=== PATIENT | male | born 1980 | race Caucasian/White ===

== ENCOUNTER 2019-02-11 20:54 | Inpatient (IN) | payer SELFPAY ==
[~2019-02-11] VITALS: Ht 195.6 cm; Wt 112.5 kg
[2019-02-11] MEDS ORDERED: CYMBALTA60 MG PO (20:59)
[2019-02-11] MEDS ORDERED: CLEOCIN HCL300 MG (20:59)
[2019-02-11 21:24] LABS: BASOPHILS 0.4 % (0-2); EOSINOPHILS 3.2 % (0-7); HEMATOCRIT 43.3 % (42.0-54.0); HEMOGLOBIN 15.4 g/dL (13.5-17.5); IMMATURE GRANULOCYTES 0.2 % (0-5); LYMPHOCYTES 25.3 % (15-50); MCH 31.7 pg (26.0-34.0); MCHC 35.6 g/dL (31.0-37.0); MCV 89.1 fL (80.0-100.0); MONOCYTES 9.5 % (2-11); NEUTROPHILS 61.4 % (40-80); PLATELET COUNT 207 10x3/uL (130-400); RBC 4.86 10x6/uL (4.20-6.10); RDW 12.3 % (11.5-14.5); WBC 10.8 10x3/uL (4.8-10.8)
[2019-02-11 21:33] LABS: APTT 30.4 SECONDS (22.8-39.4); INR 0.95 (0.85-1.17); PROTIME 12.2 SECONDS (11.6-15.0)
[2019-02-11 21:49] LABS: ALBUMIN 3.6 g/dL (3.4-5.0); ALKALINE PHOSPHATASE 109 U/L (46-116); ALT (SGPT) 24 U/L (10-68); BILIRUBIN - TOTAL 0.25 mg/dL (0.2-1.3); CALC OSMOLALITY 280 mosm/kg (275-300); CALCIUM 9.1 mg/dL (8.5-10.1); CARBON DIOXIDE 26.4 mmol/L (21.0-32.0); CHLORIDE - SERUM 106 mmol/L (98-107); CREATININE - SERUM 0.7 mg/dL (0.6-1.3); GLUCOSE 108 mg/dL (74-106); POTASSIUM - SERUM 4.1 mmol/L (3.5-5.1); PROTEIN - SERUM 7.2 g/dL (6.4-8.2); SODIUM 140 mmol/L (136-145); UREA NITROGEN 16 mg/dL (7-18); eGFR NON AFRICAN AMERICAN > 90 mL/min (90-120)
[2019-02-11 21:52] LABS: CREATINE KINASE 119 UL (21-232)
[2019-02-11 21:53] LABS: TROPONIN-I < 0.017 ng/mL (0.000-0.060)
[2019-02-11 21:56] LABS: APPEARANCE CLEAR (CLEAR); BILIRUBIN NEGATIVE (NEGATIVE); COLOR YELLOW (YELLOW); GLUCOSE NEGATIVE (NEGATIVE); KETONE NEGATIVE (NEGATIVE); NITRITE NEGATIVE (NEGATIVE); PROTEIN NEGATIVE (NEGATIVE); SPECIFIC GRAVITY 1.015 (1.005-1.020); UROBILINOGEN NORMAL (NORMAL)
--- NOTE | 2019-02-11 22:35 | NUR ---
PT RESTING ON BED. NO S/S OF ACUTE DISTRESS NOTED. PLAN OF CARE DISCUSSED WITH PT. WOUND CULTURE OBTAINED FROM PT FOOT. SWAB SENT TO LAB.
--- NOTE | 2019-02-11 23:25 | NUR ---
PT WHEELED TO FLOOR BY ER STAFF. VSS, NO SIGNS OF DISTRESS, DENIES ANY PAIN AT THIS TIME. ASSESSMENT COMPLETE. C/O SPIDER BITE TO TOP OF LEFT FOOT. AREA IS RED AND GENERALIZED SWELLING NOTED. CL IN REACH, BED IN LOWEST POSITION. CONT WITH POC.
[2019-02-11 23:30] VITALS: BP 118/74; BMI 29.4
[2019-02-12 03:50] VITALS: BP 126/87
[2019-02-12 06:23] LABS: BASOPHILS 0.2 % (0-2); EOSINOPHILS 3.9 % (0-7); HEMATOCRIT 41.7 % (42.0-54.0); HEMOGLOBIN 14.7 g/dL (13.5-17.5); IMMATURE GRANULOCYTES 0.2 % (0-5); MCH 31.6 pg (26.0-34.0); MCHC 35.3 g/dL (31.0-37.0); MCV 89.7 fL (80.0-100.0); MONOCYTES 9.1 % (2-11); NEUTROPHILS 61.6 % (40-80); PLATELET COUNT 185 10x3/uL (130-400); RBC 4.65 10x6/uL (4.20-6.10); RDW 12.5 % (11.5-14.5); WBC 8.7 10x3/uL (4.8-10.8)
[2019-02-12 06:30] LABS: CALC OSMOLALITY 285 mosm/kg (275-300); CALCIUM 8.5 mg/dL (8.5-10.1); CARBON DIOXIDE 29.7 mmol/L (21.0-32.0); CHLORIDE - SERUM 109 mmol/L (98-107); CREATININE - SERUM 0.7 mg/dL (0.6-1.3); GLUCOSE 97 mg/dL (74-106); PHOSPHOROUS 3.8 mg/dL (2.5-4.9); POTASSIUM - SERUM 4.3 mmol/L (3.5-5.1); SODIUM 143 mmol/L (136-145); UREA NITROGEN 15 mg/dL (7-18); eGFR NON AFRICAN AMERICAN > 90 mL/min (90-120)
--- NOTE | 2019-02-12 07:16 | NUR ---
PT RESTING COMFORTABLY IN BED WITH EYES CLOSED. BREATHING EVEN AND UNLABORED, NO S/S OF DISTRESS. WILL CTM.
[2019-02-12 07:39] VITALS: BP 117/83
--- NOTE | 2019-02-12 10:20 | NUR ---
HUNG IV ANTIBIOTIC, NO COMPLAINT OF IV PAIN. REQUESTED PO PAIN MEDICATION FOR PAIN IN FOOT. DENIES OTHER NEEDS. RESTING COMFORTABLY. WILL CTM.
--- NOTE | 2019-02-12 11:11 | MORECARE ---
CASE MANAGEMENT DISCHARGE SUMMARY PATIENT: JEFF MEDRANO UNIT: [id number] ADM DATE: 02/11/19 AGE: 38 : 80 SEX: M ROOM/BED: D.1209 AUTHOR: JAYY,DOC PHYSICIAN: REFERRING PHYSICIAN: SHERIF BECKFORD MD DATE OF SERVICE: 02/12/19 Discharge Plan Patient Name: JEFF MEDRANO Facility: [facility]:[place] : 1980 Planned Disposition: Home Anticipated Discharge Date: Discharge Date: Expected LOS: Initial Reviewer: [email or web address] Initial Review Date: 02/12/2019 Generated: 02/12/19 12:10 pm Comments DCP- Discharge Planning Updated by [email or web address]: Sushila Caba on 02/12/19 10:[address] Patient Name: JEFF MEDRANO Admission Status: ER Accout number: [id number] Admission Date: 02-11-2019 : 1980 Admission Diagnosis: Attending: ANALY, Current LOS: 1 Anticipated DC Date: Planned Disposition: Home Primary Insurance: UNINSURED DISCOUNT PLAN Discharge Planning Comments: CM met with patient at bedside after explaining CM role and obtaining verbal consent. Patient lives at home with his family and plans to return there upon discharge. Patient feels this would be a safe discharge. CM discussed availability / needs of home health and medical equipment. Patient denies any discharge needs at this time. Patient states he will have his family drive him home upon discharge. CM will continue to follow and assist as needed with discharge planning / needs. Shoe Repairer: Sushila Caba DCPIA - Discharge Planning Initial Assessment Updated by [email or web address]: Sushila Caba on 02/12/19 11:06 am * Is the patient Alert and Oriented? Yes * How many steps to enter\exit or inside your home? * PCP [facility] * Pharmacy [facility] * Preadmission Environment Home with Family * ADLs Independent * Equipment None * List name and contact numbers for known caregivers / representatives who currently or will assist patient after discharge: MARILEE MEDRANO - FATHER- [phone] OR [phone] * Verbal permission to speak to the caregivers and representatives has been obtained from the patient. N/A * Community resources currently utilized None * Additional services required to return to the preadmission environment? No * Can the patient safely return to the preadmission environment? Yes * Has this patient been hospitalized within the prior 30 days at any hospital? No Patient Name: JEFF MEDRANO Page 10095 at 1111 All edits/amendments must be made on the electronic document DICTATION DATE: 02/12/191109 CLAM DIGGER: AC 02/12/191109 RPT#: [id number] DC DATE: STATUS: ADM IN [facility] [address] [place] [address] END OF REPORT
--- NOTE | 2019-02-12 12:02 | NUR ---
I have reviewed this patient and I concur with the Shift Assessment completed by the Licensed Practical Nurse today this shift.
[2019-02-12 14:11] VITALS: BP 122/62
--- NOTE | 2019-02-12 14:14 | NUR ---
PT RESTING COMFORTABLY IN BED, NO S/S OF DISTRESS NOTED. VITALS ASSESSED, STABLE AT THIS TIME. DENIES ANY NEEDS. WILL CTM.
[2019-02-12 16:20] VITALS: BP 122/67
--- NOTE | 2019-02-12 19:00 | NUR ---
EVENING ROUNDS COMPLETE. PT SITTING UP IN BED, NO C/O PAIN AT THIS TIME. NO SIGNS OF DISTRESS, CL IN REACH, BED IN LOWEST POSITION, CONT WITH POC.
[2019-02-12 20:50] LABS: UDS - AMPHET NEGATIVE QUAL (NEGATIVE); UDS - BARB NEGATIVE QUAL (NEGATIVE); UDS - BENZO NEGATIVE QUAL (NEGATIVE); UDS - COCAINE NEGATIVE QUAL (NEGATIVE); UDS - OPIATE NEGATIVE QUAL (NEGATIVE); UDS - PCP NEGATIVE QUAL (NEGATIVE); UDS - THC NEGATIVE QUAL (NEGATIVE)
[2019-02-12 23:21] VITALS: BP 122/67
[2019-02-13 04:17] VITALS: BP 118/70
--- NOTE | 2019-02-13 07:10 | NUR ---
REPORT RECEIVED FROM SINGING TEACHER AND PAITENT CARE ASSUMED. PATIENT IS LAYING IN BED ON BACK AWAKE, ALERT AND ORIENTED X 4. PATIENT DENIES ANY NEEDS OR PAIN. WILL COTINUE WITH PLAN OF CARE. SR UP X 2 BED IN LOW POSITION AND CALL LIGHT IN REACH.
[2019-02-13 09:39] VITALS: BP 125/85
[2019-02-13 11:05] VITALS: BP 121/75
--- NOTE | 2019-02-13 11:31 | NUR ---
PATIENT SITTING UP IN BS CAHIR WATCHING TV. PATIENT DENIES ANY NEEDS OR PAIN. PATIENT IS STABLE AND VSS. WILL CONTINUE TO MONITOR. CALL LIGHT IN REACH.
[2019-02-13 14:06] VITALS: Ht 195.6 cm; Wt 112.5 kg
--- NOTE | 2019-02-13 17:43 | NUR ---
PATIENT SITTING UP IN BED TALKING ON PHONE. PATIENT IS STABLE AND VSS. WILL CONTINUE TO MONTITOR. SR UP X 2 BED IN LOW POSITION AND CALL LIGHT IN REACH.
[2019-02-13 18:19] VITALS: BP 135/89
--- NOTE | 2019-02-13 19:00 | NUR ---
EVENING ROUNDS COMPLETE. PT SITTING UP IN BED, NO SIGNS OF DISTRESS. PT DENIES ANY PAIN AT THIS TIME. CL IN REACH, BED IN LOWEST POSITION. CONT WITH POC.
[2019-02-14 03:37] VITALS: BP 123/75
--- NOTE | 2019-02-14 06:57 | NUR ---
REPORT RECEVIED FROM PLUGGING MACHINE OPERATOR AND PATIENT CARE ASSUMED. PATIENT LAYING IN BED WITH EYES CLOSED AND BREATHING EVENLY. WILL CONTINUE WITH PLAN OF CARE. SR UP X 2 BED IN LOW POSITION AND CALL LIGHT IN REACH.
[2019-02-14] MEDS ORDERED: VIBRAMYCIN 100100 MG PO (10:57)
--- NOTE | 2019-02-14 13:12 | NUR ---
ORDERS RECEIVED FOR DC. DC INSTRUCTIONS GIVEN VERBALLY AND WRITTEN. PATIENT VERBALIZED UNDERSTANDING AND SIGNED PAPERWORK. PATIENT DC HOME FOR SELF CARE. PATIENT TO FRONT DOOR VIA WC TO PRIVATE VEHICLE DRIVEN BY FRIEND.
--- NOTE | 2019-02-14 14:37 | MORECARE ---
CASE MANAGEMENT DISCHARGE SUMMARY PATIENT: JEFF MEDRANO UNIT: [id number] ADM DATE: 02/11/19 AGE: 38 : 80 SEX: M ROOM/BED: D.1209 AUTHOR: JAYY,DOC PHYSICIAN: REFERRING PHYSICIAN: SHERIF BECKFORD MD DATE OF SERVICE: 02/14/19 Discharge Plan Patient Name: JEFF MEDRANO Facility: [facility]:[place] : 1980 Planned Disposition: Home Anticipated Discharge Date: Discharge Date: 02/14/2019 Expected LOS: Initial Reviewer: [email or web address] Initial Review Date: 02/12/2019 Generated: 02/14/19 3:36 pm DCP- Discharge Planning Updated by [email or web address]: Sushila Caba on 02/12/19 10:[address] Patient Name: JEFF MEDRANO Admission Status: ER Accout number: [id number] Admission Date: 02-11-2019 : 1980 Admission Diagnosis: Attending: ANALY, Current LOS: 1 Anticipated DC Date: Planned Disposition: Home Primary Insurance: UNINSURED DISCOUNT PLAN Discharge Planning Comments: CM met with patient at bedside after explaining CM role and obtaining verbal consent. Patient lives at home with his family and plans to return there upon discharge. Patient feels this would be a safe discharge. CM discussed availability / needs of home health and medical equipment. Patient denies any discharge needs at this time. Patient states he will have his family drive him home upon discharge. CM will continue to follow and assist as needed with discharge planning / needs. Laborer Petroleum Refinery: Sushila Caba DCPIA - Discharge Planning Initial Assessment Updated by [email or web address]: Sushila Caba on 02/12/19 11:06 am * Is the patient Alert and Oriented? Yes * How many steps to enter\exit or inside your home? * PCP [facility] * Pharmacy [facility] * Preadmission Environment Home with Family * ADLs Independent * Equipment None * List name and contact numbers for known caregivers / representatives who currently or will assist patient after discharge: MARILEE MEDRANO - FATHER- [phone] OR [phone] * Verbal permission to speak to the caregivers and representatives has been obtained from the patient. N/A * Community resources currently utilized None * Additional services required to return to the preadmission environment? No * Can the patient safely return to the preadmission environment? Yes * Has this patient been hospitalized within the prior 30 days at any hospital? No Last DP export: 02/12/19 10:11 a Patient Name: JEFF MEDRANO Page [phone] at 1437 All edits/amendments must be made on the electronic document DICTATION DATE: 02/14/191435 BLISTER PACKING MACHINE TENDER: AC 02/14/19 143 RPT#: [id number] DC DATE:02/14/19 STATUS: DIS IN [facility] [address] [place] [address] END OF REPORT
== END 2019-02-14 13:13 | disposition home or self-care (01) | DRG 603 ==
LOC: D.ER 20:54 → EDBD 20:54 → D.M3 22:52
PROVIDERS: Family Medicine; Internal Medicine Nephrology; ADMIT Family Medicine; ATTEND Family Medicine
DX: L03.116 Cellulitis of left lower limb (principal); F17.213 Nicotine dependence, cigarettes, with withdrawal; T63.331A Toxic effect of venom of brown recluse spider, accidental (unintentional), initial encounter; B95.62 Methicillin resistant Staphylococcus aureus infection as the cause of diseases classified elsewhere